=== PATIENT | male | born 1935 | race Asian ===

== ENCOUNTER 2021-06-06 00:29 | Emergency (ER) | payer MEDICARE, OTHER ==
[~2021-06-06] VITALS: Ht 154.9 cm; Wt 49.4 kg
[2021-06-06 01:05] VITALS: BP 131/61
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
--- NOTE | 2021-06-06 03:44 | NUR ---
FAMILY AT BEDSIDE. ER MD SPEAKING TO THEM REGARDING DISCHARGE, PT LEFT WITH FAMILY. AMBULATED OUT OF ED WITH STEADY GAIT.
== END 2021-06-06 03:47 | disposition home or self-care (01) ==
LOC: ER 00:32
DX: Z04.1 Encounter for examination and observation following transport accident (principal); V49.69XA Unspecified car occupant injured in collision with other motor vehicles in traffic accident, initial encounter; Y93.89 Activity, other specified; Y92.413 State road as the place of occurrence of the external cause; Y99.8 Other external cause status